=== PATIENT | male | born 1985 ===

== ENCOUNTER 2025-01-20 13:47 | Emergency (ER) | payer SELFPAY ==
[2025-01-20 14:00] VITALS: BP 116/69; BP 138/84; PULSE 92; PULSE 94; RESP 12; TEMP 37.1; O2SAT 96; O2SAT 98; BMI 27.4
--- NOTE | 2025-01-20 14:08 | ED_ITS ---
HPI - General Adult General Chief complaint: ETOH/Substance Use Stated complaint: HEROIN USE,PD ONBOARD PER EMS Time Seen by Provider: 01/20/25 14:01 Source: patient, EMS and police Mode of arrival: EMS Limitations: no limitations History of Present Illness ED Provider: DR. Infante HPI narrative: a 39-year-old male with history of polysubstance abuse brought in by EMS after was found by the police in [place] after using heroin patient stated that he used heroin/ fentanyl by sniffing did not use IV drugs, patient did not require fentanyl by EMS, stated that he did not sleep for the past 3-4 days and want to be discharged home, no SI, no HI, no hallucination. Vital signs in the emergency department is stable patient adamantly declined to stay in the emergency department for further monitoring. Patient stated that the last use was [address] Related Data Allergies Allergy/AdvReac Type Severity Reaction Status Date / Time Unable to Assess Allergy Verified 01/20/25 14:02 Review of Systems Review of Systems: Yes all other systems are reviewed and are negative [facility] Social History Social History Do you have a plan to hurt others: No Plan Physical Exam ED Vital Signs: Vital Signs - 24 hr 01/20/25 14:00 Temperature 98.8 F Pulse Rate 94 Respiratory Rate 12 Blood Pressure 116/69 Pulse Oximetry 98 Oxygen Delivery Method Room Air BMI result Body Mass Index 27.4 Vital signs have been reviewed and appear to be correct. Blood pressure elevated. Heart rate normal. Respiratory rate normal. Temperature normal. Oxygen saturation normal. Appearance: Alert. Oriented X3. No acute distress. Head: Normal external exam. Normocephalic. Atraumatic. No Godinez signs noted. No raccoon eyes noted Eyes: PERRLA. EOMI. Conjunctiva and sclera normal. Eyelids normal. ENT: TM's Normal. Pharynx normal. Uvula midline. Moist mucous membranes. No trismus noted. No drooling noted. No muffled voice noted. Neck: Normal inspection. Neck supple. FROM. No adenopathy. Thyroid Normal. No meningeal signs. No neck mass noted. CVS: Normal heart rate and rhythm. Heart sound normal. No murmurs noted. Pulses normal throughout. Respiratory: No respiratory distress. Painless inspiration. Breath sounds normal. No wheezes/rales/rhonchi noted. Chest nontender. No accessory muscle usage noted or decreased air movement noted. Abdomen: Soft and nontender. Bowel sounds normal in all 4 quadrants. No distention noted. No organomegaly noted. No visible injury noted. Back: No CVA tenderness. Full range of motion noted. Skin: Skin warm and dry. Normal skin color. Normal skin turgor. No rashes/lesions/lacerations noted. Extremities: No lower extremity edema. Extremities exhibit normal range of motion. Extremities nontender. Neuro: Oriented X 3. Cranial nerve exam: II-XII are grossly intact No motor deficit. No sensory deficit. Reflexes normal. Patient Orientation: Person, Place, Time and Situation, okay hygiene and grooming. Fair eye contact, attentive, no tics or tremors. Level of Consciousness: Awake, Appropriate and Alert Patient Behavior: Appropriate, Guarded, Cooperative and Anxious Mood Description: Constricted, Blunted and Apprehensive Affect Description: Constricted, Blunted and Apprehensive Patient Cognition Impaired: No Ability to Follow Directions: Excellent Speech Pattern: Clear, Appropriate and Spontaneous Speech, nonpressured, spontaneous with regular rate and rhythm, normal volume and prosody. No dysarthria. Memory Description: Intact, Immediate Intact and Short Term Intact Hallucinations: None Delusions: Not Present Thought Process: Intact Thought Content: positive for Intact, positive for Logical, denies Suicidal Ideation and denies Homicidal Ideation. Depressive Symptoms: Not present. Judgement and Insight: Limited but adequate. Course Reevaluation(s) Reevaluation #1: admitted to snort heroin from the street, no IV use today, patient required no Narcan, claimed that he is tired and want to be discharged caleb to go home and sleep, no SI, no HI. Patient was given Narcan to take home, will not wait for care team evaluation Time: 14:14 Medical Decision Making Differential Diagnosis Differential Diagnoses: The differential diagnosis associated with the presentation includes ( substance use, OD, SI, HI.) Admission/Observation Consideration of admission/observation: Escalation of care including admission/observation considered Discharge Plan Discharge Clinical Impression: Heroin use disorder, mild Patient Disposition: Left Against Medical Advice Instructions: Polysubstance Use Disorder (ED) Additional Instructions: Opiate use disorder You were seen in our Emergency Department today for treatment of opiate use disorder. You may have been dosed with medication for opiate use disorder (MOUD) in the form of suboxone or methadone. You may experience feeling some withdrawal symptoms and this is normal. The? dose in the Emergency Department is a starting dose and meant to be titrated up once you follow up with a clinic. Please do not feel discouraged, it is a process. The nurse has reviewed with you where to follow up and what information to bring with you, to continue treatment. You also may have been given naloxone (narcan) to take home with you. This medication is used to potentially treat opiate overdose. If you decide you want to stop or cut down on how much you?re using, you can call or walk into our outpatient Addiction Treatment office: [facility] (M-F 9am-5p) [address] [place] [address], [address] [phone] You may have been provided with safer injection?items, please take time to take care of YOU and your health. Use new supplies whenever possible to lessen the chances of infections and other illnesses.? ?If you need more supplies, please go [facility],? [address] [place] [address] OR you can call or text to coordinate delivery of safer supplies. You were also provided a list of several treatment providers in the area.? If you experience any worsening symptoms you cannot control please return to the ED or call 911. Please follow up at your next appointment. Things to look out for are fevers, chest pain, shortness of breath, severe pain, dizziness, fainting or any other concerns. Stand Alone Forms: Against Medical Advice
[2025-01-20 14:18] VITALS: BP 116/69; PULSE 94; RESP 12; TEMP 37.1; O2SAT 98
[2025-01-20] MEDS: Naloxone HCl Nasal TAKE HOME 4 MG SPRAY 8 MG NOSTRILALT (14:18)
== END 2025-01-20 14:30 | disposition left against medical advice (07) ==
LOC: HO.ED 14:28
PROVIDERS: Emergency Provider Emergency Medicine
DX: F11.90 Opioid use, unspecified, uncomplicated (principal); F19.10 Other psychoactive substance abuse, uncomplicated
CPT/HCPCS: 99284